=== PATIENT | female | born 1965 | race Caucasian/White ===

== ENCOUNTER 2021-01-29 08:02 | Outpatient (RCR) | payer OTHER, SELFPAY ==
[2021-01-29] MEDS: diphenhydrAMINE HCl CAP 25 MG CAPSULE PO (08:35)
[2021-01-29] MEDS: FAMOTIDINE 20 MG TABLET PO (08:35)
[2021-01-29] MEDS: ACETAMINOPHEN 325 MG TABLET 650 MG PO (08:35)
[2021-01-29 08:53] VITALS: BP 127/69; PULSE 93; RESP 18; TEMP 36.5; O2SAT 99
--- NOTE | 2021-01-29 08:54 | PC.NURSE ---
Attempted to start IV without success, will administer treatment with subcutaneous injections.
--- NOTE | 2021-01-30 11:16 | PC.NURSE ---
Called patient to follow-up regarding COVID antibody infusion yesterday. Patient states she is feeling slightly better than before treatment and denies any side effects at this time.
== END 2021-01-29 15:31 ==
LOC: AMCINF 08:02
PROVIDERS: PCP Internal Medicine; Visit Provider Internal Medicine Hematology & Oncology
DX: Z23 Encounter for immunization (principal); U07.1 COVID-19
CPT/HCPCS: A9270; M0243; Q0243